=== PATIENT | female | born 1995 | race Caucasian/White ===

== ENCOUNTER 2022-01-16 16:32 | Inpatient (IN) | payer OTHER ==
[~2022-01-16] VITALS: Ht 154.9 cm; Wt 83.5 kg
[~2022-01-16 16:32] MED LIST: PRENATAL VITAM1 EAC8 PO
[2022-01-16 19:06] LABS: HEMOGLOBIN 8.5 gm/dl (12.3-15.3); RED BLOOD COUNT 3.68 M/UL (4.00-5.10); WHITE BLOOD COUNT 8.2 K/UL (4.5-11.0)
[2022-01-18 04:07] LABS: HEMOGLOBIN 8.7 gm/dl (12.3-15.3)
[2022-01-18] MEDS ORDERED: HYDROCODONE-AC1 EACH PO (11:04)
[2022-01-18] MEDS ORDERED: IBUPROFEN600 MG PO (11:04)
[2022-01-18] MEDS ORDERED: DOCUSATE SODIU250 MG PO (11:04)
== END 2022-01-19 16:28 | disposition home or self-care (01) | DRG 807 ==
LOC: GENOP 16:32 → OB 18:31
PROVIDERS: Obstetrics & Gynecology; ADMIT Obstetrics & Gynecology
PROC: 10E0XZZ Delivery of Products of Conception, External Approach (ICD-10-PCS; principal; 2022-01-16)
PROC: 0KQM0ZZ Repair Perineum Muscle, Open Approach (ICD-10-PCS; 2022-01-16)
PROC: 10907ZC Drainage of Amniotic Fluid, Therapeutic from Products of Conception, Via Natural or Artificial Opening (ICD-10-PCS; 2022-01-16)
PROC: 4A1HXCZ Monitoring of Products of Conception, Cardiac Rate, External Approach (ICD-10-PCS; 2022-01-16)
DX: O36.63X0 Maternal care for excessive fetal growth, third trimester, not applicable or unspecified (principal); Z37.0 Single live birth; Z3A.40 40 weeks gestation of pregnancy; Z88.0 Allergy status to penicillin; O70.1 Second degree perineal laceration during delivery; Z20.822 Contact with and (suspected) exposure to COVID-19; O99.824 Streptococcus B carrier state complicating childbirth
CPT/HCPCS: 36415; 80307; 81001; 85014; 85018; 85025; 86850; 86900; 86901; J2590; J3370; J7030; J7120